=== PATIENT | female | born 1960 | race Caucasian/White ===

== ENCOUNTER → 2017-05-06 | Outpatient (CLI) | payer OTHER | LOC: CIMAGING 07:59 | PROVIDERS: ATTEND Family Medicine | DX: I10 Essential (primary) hypertension (principal); R09.89 Other specified symptoms and signs involving the circulatory and respiratory systems; R29.90 Unspecified symptoms and signs involving the nervous system | CPT/HCPCS: 76770-PO ==

== ENCOUNTER 2017-06-21 09:49 | Observation (INO) | payer OTHER ==
--- NOTE | 2017-06-21 09:53 | EDPHY ---
H & P Time Seen by Provider: 06/21/17 09:52 HPI/ROS: CHIEF COMPLAINT: Pins and needles on the left side HISTORY OF PRESENT ILLNESS: Patient had her 1st episode on April 20 and was seen at [facility]. She apparently had CT and MRI imaging was discharged in the emergency department. She was seen later that week at [facility] and it CTA as well as repeat head imaging. Her 3rd episode she says was a April 25 but she did not seek medical care at that time. Today she was at work at around 650 a.m. When she had sudden onset of feeling lightheaded followed by pins and needles on her left side which persists to her presentation here. Symptoms are moderate. Her 1st episode was associated with left leg weakness and difficulty speaking but not today. She did see Neurology Dr. Franco in the office after the 1st episode and he told her he thought it might have been hypertensive emergency. Today she did not have weakness or difficulty speaking associated with her symptoms. REVIEW OF SYSTEMS: Eye: no change in vision ENT: no sore throat Cardiac: no chest pain or syncope Pulmonary: no cough or SOB Abdomen: no vomiting, diarrhea, abdominal pain Musculoskeletal: no back pain Skin: no rash Neuro: no headache Constitutional: no fever : no urinary symptoms A comprehensive 10 point review of systems is otherwise negative aside from elements mentioned in the history of present illness. PAST MEDICAL HISTORY: Includes asthma Social history: Works as a respiratory therapist General Appearance: Alert and conversant, cooperative. Eyes: No scleral icterus. Pupils equal and reactive extraocular motion intact. ENT, Mouth: Normal mucous membranes. Respiratory: Normal respiratory effort, breath sounds equal, lungs are clear to auscultation. Cardiovascular: Regular rate and rhythm. Gastrointestinal: Abdomen is soft and non tender. Neurological: Alert, face symmetric, normal motor and sensory in extremities. Bilateral good wireless sales manager strength and normal [id number], no pronator drift. Speech is fluent. Can lift each limb up independently off the bed. Skin: Warm and dry, no rashes. Musculoskeletal: No peripheral edema. Psychiatric: Mildly anxious. Emergency Department course/MDM: Discussed with Joan 1009am. Repeat MRI. He will consult if requested by hospitalist. MRI reviewed at 2:10 p.m., white matter plaques possibly microvascular or could also be demyelinating. Admission for further evaluation of recurrent neurologic symptoms which still do not have a definitive diagnosis. Smoking Status: Never smoked Constitutional: Initial Vital Signs Temperature (C) 36.6 C 06/21/17 09:56 Heart Rate 70 06/21/17 09:56 Respiratory Rate 18 06/21/17 09:56 Blood Pressure 159/94 H 06/21/17 09:56 O2 Sat (%) 97 06/21/17 09:56 O2 Delivery Mode Room Air Allergies/Adverse Reactions: aspirin [Aspirin] Allergy (Severe, Verified 03/24/16 11:16) asthma attack NSAIDS (Non-Steroidal Anti-Inflamma [Nsaids] Allergy (Severe, Verified 03/24/16 11:16) asthma attack prochlorperazine edisylate [From Compazine] Allergy (Intermediate, Verified 08/04 11:16) muscle spasm prochlorperazine maleate [From Compazine] Allergy (Intermediate, Verified 11:16) muscle spasm prednisone [Prednisone] Allergy (Mild, Verified 03/24/16 11:16) rash on hands and feet Home Medications: Medication Instructions Recorded Albuterol [Proventil Inhaler HFA 2 puffs IH Q4H PRN 06/21/17 (*)] Loratadine [Claritin 10 mg] 10 mg PO DAILY 06/21/17 Mometasone Furoate [Asmanex] 1 puffs IH DAILY 06/21/17 Montelukast Sodium [Singulair 10 10 mg PO DAILY 06/21/17 mg (*)] Salmeterol Diskus [Serevent Diskus 1 puffs IH DAILY 06/21/17 (*)] Sertraline HCl [Zoloft 100mg (*)] 100 mg PO DAILY 06/21/17 amLODIPine BESYLATE [Norvasc 2.5 2.5 mg PO DAILY 06/21/17 mg (*)] Medical Decision Making - Diagnostics EKG Interpretation: 12-lead EKG interpreted by me; official reading is in trace master. My interpretation is sinus rhythm rate 62 with borderline left axis. Imaging Results: Imaging Impressions Brain MRI 06/21/17 10:12 Impression: 1. Several nonspecific hyperintense T2/FLAIR signal abnormalities in the white matter of bilateral cerebral hemispheres. Differential diagnosis includes multiple sclerosis demyelinating plaques versus microvascular ischemic gliosis. 2. No acute infarct, acute hemorrhage, hydrocephalus, or mass effect. 3. Mild chronic sinus disease. Findings and recommendations discussed with emergency department physician, Chapo Foster MD at 1230 hours on June 21, 2017. Final report concurs with initial preliminary interpretation. Imaging: Discussed imaging studies w/ orthopedically impaired teacher Radiologist Differential Diagnosis: Differential considered including but not limited to demyelinating disease, ischemic stroke, intracranial bleed or mass, metabolic, anxiety, peripheral neuropathy. Consult/Admit Bed Type: [facility] - Data Points Laboratory Results: Laboratory Results 06/21/17 10:15 06/21/17 10:15 06/21/17 06/21/17 10:15 10:15 WBC 6.64 10^3/uL 10^3/uL (3.80-9.50) RBC 4.83 10^6/uL 10^6/uL (4.18-5.33) Hgb 14.4 g/dL g/dL (12.6-16.3) Hct 42.1 % % (38.0-47.0) MCV 87.2 fL fL (81.5-99.8) MCH 29.8 pg pg (27.9-34.1) MCHC 34.2 g/dL g/dL (32.4-36.7) RDW 12.9 % % (11.5-15.2) Plt Count 189 10^3/uL 10^3/uL (150-400) MPV 9.4 fL fL (8.7-11.7) Neut % (Auto) 78.9 % H % (39.3-74.2) Lymph % (Auto) 14.5 % L % (15.0-45.0) [place] % (Auto) 4.7 % % (4.5-13.0) Eos % (Auto) 1.1 % % (0.6-7.6) Baso % (Auto) 0.3 % % (0.3-1.7) Nucleat RBC Rel Count 0.0 % % (0.0-0.2) Absolute Neuts (auto) 5.25 10^3/uL 10^3/uL (1.70-6.50) Absolute Lymphs (auto) 0.96 10^3/uL L 10^3/uL (1.00-3.00) Absolute Monos (auto) 0.31 10^3/uL 10^3/uL (0.30-0.80) Absolute Eos (auto) 0.07 10^3/uL 10^3/uL (0.03-0.40) Absolute Basos (auto) 0.02 10^3/uL 10^3/uL (0.02-0.10) Absolute Nucleated RBC 0.00 10^3/uL 10^3/uL (0-0.01) Immature Gran % 0.5 % % (0.0-1.1) Immature Gran # 0.03 10^3/uL 10^3/uL (0.00-0.10) Sodium 142 mEq/L mEq/L (135-145) Potassium 3.7 mEq/L mEq/L (3.5-5.2) Chloride 106 mEq/L mEq/L (97-110) Carbon Dioxide 24 mEq/l mEq/l (22-31) Anion Gap 12 mEq/L mEq/L (8-16) BUN 20 mg/dL mg/dL (7-23) Creatinine 0.7 mg/dL mg/dL (0.6-1.0) Estimated GFR > 60 Glucose 133 mg/dL H mg/dL (70-100) Calcium 9.7 mg/dL mg/dL (8.5-10.4) Departure - Departure Disposition: [facility] Acute Clinical Impression: Paresthesia Condition: Good
--- NOTE | 2017-06-21 10:24 | CPEKG ---
Heart Rate: 62 RR Interval: 968 P-R Interval: 156 QRSD Interval: 92 QT Interval: 448 QTC Interval: 455 P [place]: -14 QRS [place]: -23 T Wave [place]: 27 EKG Severity - BORDERLINE ECG - EKG Impression: SINUS RHYTHM EKG Impression: BORDERLINE LEFT AXIS DEVIATION EKG Impression: BORDERLINE T ABNORMALITIES, ANTERIOR LEADS Electronically Signed By: Chapo Foster 21-Jun-2017 10:39:45
[2017-06-21 10:30] LABS: PLATELET COUNT 189 10^3/uL (150-400)
--- NOTE | 2017-06-21 11:34 | ASMTLACE ---
NICOLAS Acuity / Level of Answers: Yes Care: Did the patient have an inpatient admission? Comorbidities - select Answers: Chronic pulmonary disease all that apply # of Emergency department Answers: 1-2 visits in the last 6 months Score: 6 Date Signed: 06/21/2017 11:33 AM Electronically Signed By:Sanna Wu RN
[2017-06-21 12:31] VITALS: BP 110/94; PULSE 68; RESP 15; TEMP 97.6; O2SAT 95
[2017-06-21] MEDS ORDERED: ONDANSETRON DISINTEGRATING 4 MG TAB PO PRN (13:05)
[2017-06-21] MEDS ORDERED: LORazepam 0.5 MG TAB PO PRN (13:05)
[2017-06-21] MEDS ORDERED: ACETAMINOPHEN 325 MG TAB PO PRN (13:05)
[2017-06-21] MEDS ORDERED: ONDANSETRON 4 MG/2 ML VIAL IVP PRN (13:05)
[2017-06-21] MEDS ORDERED: ALBUTEROL 60 PUFFS/8 GM MDI IH PRN (13:07)
--- NOTE | 2017-06-21 15:43 | GHP ---
[f rep st] HISTORY AND PHYSICAL DATE OF ADMISSION: 06/21/2017 CHIEF COMPLAINT: Left-sided facial and body numbness and tingling with lightheadedness. HISTORY OF PRESENT ILLNESS: The patient is a 56-year-old female with history of hypertension, anxiet y, depression, and migraine headaches, who presented to the emergency department with recurrent sympt oms, including sudden onset lightheadedness with left-sided facial numbness and left-sided weakness. She also endorses mild tingling in her left upper and lower extremities as well as the left side of her face. Her symptoms have mostly resolved, though she still has some vague weakness. This is actu ally her 4th episode over the past several months. She has had 2 episodes while at work; 1 that occu rred April 20 after arriving to work [place] [address] She then had a rapi d response which provoked some stress. She then immediately felt lightheaded as if she might pass ou t, and she lowered herself to the ground without loss of consciousness. At that time, her blood pres sure was found to be 190/101. She ultimately went to the emergency department at [facility], and a CT brain was unremarkable. An MRI brain at that time was negative for stroke, and show ed just [id number] chronic microvascular ischemic changes. She was normotensive by the time of discharge, though states it took about 24 hours for her symptoms to completely resolve. She also no sunny that she spent a month suffering from left-sided weakness and fatigue. She had another episode April 26, 2017, and presented to a different hospital, [facility]. Again, a s troke workup, including CTA head and neck were unremarkable without any hemodynamically significant l esions. An MRI again showed nothing acute. There was some consideration given to hypertensive emerg ency as there had been prior documented high blood pressures during the onset of symptoms. However, today her episode occurred while at work. She developed sudden lightheadedness followed by left faci al numbness and left upper and lower extremity weakness and tingling. During the event today she was normotensive with a blood pressure of 130s over 80s. She had no chest pain, shortness of breath, vi ajx changes, or difficulty with speech. She is admitted to the hospital for further management. PAST MEDICAL/SURGICAL HISTORY: 1. Depression, anxiety. 2. Hypertension. 3. History of migraine headaches. 4. Asthma. 5. Irritable bowel syndrome. 6. Restless legs. 7. Sleep apnea. FAMILY HISTORY: She notes her daughter suffers from anxiety and panic attacks. SOCIAL HISTORY: The patient lives independently. 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 She reports 1 glass of wine 3-4 times a week, and quit smoking in April 2017. She has a history of high caffeine intake, though recently quit this as well in April 2017. REVIEW OF SYSTEMS: A 10-point review of systems was performed, is negative except as per HPI. OBJECTIVE: VITAL SIGNS: Temperature is 36.4, blood pressure 110/94, heart rate 68, respiratory rate 15. She is 95% on room air. GENERAL: The patient is awake, alert and oriented, in no acute distre ss. HEENT: Head is atraumatic, normocephalic. Pupils equal, round, react to light. Extraocular mus cles are intact. Oropharynx clear. Mucous membranes are moist. NECK: Supple. There is no JVD. H EART: Regular rate and rhythm without murmur. LUNGS: Clear to auscultation bilaterally. ABDOMEN: Soft, nondistended, nontender with normoactive bowel sounds. EXTREMITIES: Without cyanosis, clubbi ng, or edema. NEUROLOGIC: Cranial nerves 2-12 are intact. She reports slight decrease in sensation of her left face and distal left upper extremity. Pronator drift is negative. There is no facial a symmetry. She has 5/5 muscle strength in bilateral upper extremities with no extensor weakness. She does have slightly decreased strength in her left lower extremity, 4/5, compared to 5/5 on the right , though I note her effort is intermittent during this exam. LABORATORY DATA: CBC was completely normal. Basic metabolic panel shows normal electrolytes, normal creatinine of 0.7, glucose 133. I also reviewed some outpatient laboratory data. She had 24-hour u rine with normal levels of metanephrine. A morning cortisol was normal. Brain MRI without contrast shows several nonspecific hyperintense T2 flare signal abnormalities in th e white matter of bilateral cerebral hemispheres. No acute infarct, hemorrhage, hydrocephalus, or ma ss effect is noted. I reviewed this with our neurologist who notes this is unchanged from her 2 prio r MRIs at outside hospitals. ASSESSMENT AND PLAN: The patient is a 56-year-old female with recurrent symptoms of lightheadedness, facial, and left body numbness, who is admitted to the hospital with recurrent symptoms. 1. Facial and left body numbness and lightheadedness. Differential diagnosis of this symptom patter n includes transient ischemic attack or stroke, which seem unlikely based on prior neurologic consult ation and imaging. Also, consider migraine variant, though this also seems unlikely with no signific ant headache reported, and this being inconsistent with her previous migraine headaches. Hypertensiv e emergency was also considered, though this event occurred while she was normotensive. In addition, is considered an anxiety or panic attack, though the patient is very reluctant to acknowledge this p ossibility. She still has some very vague residual symptoms. I will give her a dose of Ativan now t o see how she responds. I discussed the case with Neurology, and there is no further workup indicate d. Of note, she did have a cervical spine imaging done at [facility], which did not reveal any abnorma lities. There is no evidence to suggest stroke. She will be continued on her Zoloft with as needed Ativan and close outpatient followup. She does plan to obtain a 2nd opinion [facility] Dr[facility]. 2. Hypertension. She is relatively normotensive at this time. We will continue her outpatient amlo dipine. 3. Asthma. There is no evidence of exacerbation. We will continue her outpatient medications, incl uding Asmanex, Serevent, albuterol, and Singulair. 4. Deep vein thrombosis prophylaxis. Patient is low risk, and do not anticipate a prolonged hospita lization. 5. Code status: Patient is full code. 6. Disposition: Patient admitted to observation status. Anticipate discharge in the morning should her condition remain stable. /[id number]/MODL
--- NOTE | 2017-06-21 20:34 | GDS ---
[f rep st] DISCHARGE SUMMARY DISCHARGE DIAGNOSIS: Recurring episodes of left-sided facial and body numbness and tingling with lig htheadedness. CONSULTANTS: Neurology consultation was obtained via telephone. The patient wished to discharge ken or to formal neurology consultation. IMAGING STUDIES: Brain MRI, June 21, 2017, showed several, nonspecific, hyperintense, T2 FLAIR signa l abnormalities in the white matter of bilateral cerebral hemispheres; no acute infarct, acute hemorr chyna, hydrocephalus, or mass effect. Mild chronic sinus disease was noted. Also of note, I reviewed this MRI with our neurologist who had also seen her 2 previous MRIs at outside hospital and notes th subhash bilateral cerebral hemisphere signal abnormalities are unchanged from prior. HISTORY: For details, please see the history and physical dated June 21, 2017. In brief, the patien rafiq is a 56-year-old female with a history of depression, anxiety, hypertension, and migraine headaches who presented to the emergency department with a 4th episode of left-sided facial numbness as well a s left-sided body numbness and tingling with lightheadedness. She has been evaluated in 2 other hosp itals with similar symptoms. Previous brain MRIs have shown changes consistent with microvascular di sease likely related to her hypertension. She has also had a stroke workups at outside hospitals inc luding CTAs which were unremarkable. In addition, she had a CT of her cervical spine which did not r eveal an etiology of her symptoms. Given the recurring nature of her symptoms, she was admitted to [facility] for further management. HOSPITAL COURSE: The patient was admitted to the med-surg unit. As above, MRI was obtained. This w as unchanged from her 2 previous MRIs over the past 2 months. Consideration was given to TIA or stro ke. I discussed the case with Neurology, and Dr. Franco doubts these episodes represent TIAs, and [facility] MRI shows no evidence of stroke. Consideration was also given to a migraine variant, although jovi t seems less likely as she has had no headaches with these episodes. Initially, her episodes were th ought to be hypertensive emergencies, although this episode it was noted that she was normotensive ma isai hypertensive emergency an unlikely cause. After lengthy discussion with Neurology, Dr. Franco feels this does not represent multiple sclerosis or any demyelinating neurologic syndrome. Some form of anxiety or panic attack is considered a possible explanation for her symptoms. She is actually q uite discouraged and does not believe it is possible these episodes could represent anxiety or panic attacks. I did offer to try a dose of Ativan while she was here since she is still having some resid ual symptoms, though she declined this. After lengthy review with Neurology, no further neurologic w orkup was recommended. The patient does plan to have a 2nd opinion from Dr. Lee in the outpati ent setting. Of note, she was relatively normotensive during this admission, and I recommend she con tinue her outpatient amlodipine. I also reviewed recent outpatient workup for labile hypertension, a nd she has had normal 24-hour urine metanephrine and normetanephrine as well as normal morning cortis ol. We discussed the possibility of trying a medication such as nortriptyline or amitriptyline for t he possibility that this could improve a recurring atypical migraine syndrome. I will defer this to her primary care physician to determine if they would like to increase her Zoloft versus a trial of A tivan or possibly a trial on nortriptyline. I offered the patient overnight hospitalization for obse rvation to ensure her symptoms resolve and there are no new neurologic abnormalities. However, she d eclines to remain hospitalized and wishes to discharge home. She is currently stable, and I think th at is reasonable. We discussed close outpatient followup with both her primary care and Neurology. DISPOSITION: Patient is discharged home in stable condition. FOLLOWUP: 1. Dr. Jordan Lee, Neurology, for 2nd opinion at the patient's request. 2. Dr. Jillian Lewis, primary care. DISCHARGE MEDICATIONS: Please see Endra for completed outpatient medication list. She will jay nue all outpatient medications as previously prescribed. There are no new medications on discharge. /[id number]/MODL
[2017-06-22] MEDS ORDERED: MOMETASONE FUROATE IH SCH (09:00)
[2017-06-22] MEDS ORDERED: CETIRIZINE 10 MG TAB PO SCH (09:00)
[2017-06-22] MEDS ORDERED: SERTRALINE HCL 100 MG TAB PO SCH (09:00)
[2017-06-22] MEDS ORDERED: SALMETEROL DISKUS MDI IH SCH (09:00)
[2017-06-22] MEDS ORDERED: MONTELUKAST SODIUM 10 MG TAB PO SCH (09:00)
== END 2017-06-21 15:40 | disposition home or self-care (01) ==
LOC: F3N 12:19
PROVIDERS: ADMIT Internal Medicine; ATTEND Hospitalist
DX: R20.2 Paresthesia of skin (principal); R42 Dizziness and giddiness; R29.898 Other symptoms and signs involving the musculoskeletal system; R29.700 NIHSS score 0; F41.9 Anxiety disorder, unspecified; G43.909 Migraine, unspecified, not intractable, without status migrainosus; F32.9 Major depressive disorder, single episode, unspecified; I10 Essential (primary) hypertension; J45.909 Unspecified asthma, uncomplicated; K58.9 Irritable bowel syndrome, unspecified; G25.81 Restless legs syndrome; G47.33 Obstructive sleep apnea (adult) (pediatric); Z87.891 Personal history of nicotine dependence
CPT/HCPCS: 70551; 93005; 99285; G0378

== ENCOUNTER 2017-11-12 09:25 | Emergency (ER) | payer OTHER ==
--- NOTE | 2017-11-12 09:57 | CPEKG ---
Heart Rate: 67 RR Interval: 896 P-R Interval: 148 QRSD Interval: 98 QT Interval: 428 QTC Interval: 452 P [place]: 49 QRS [place]: -18 T Wave [place]: 38 EKG Severity - BORDERLINE ECG - EKG Impression: SINUS RHYTHM Electronically Signed By: Edgardo Dukes 12-Nov-2017 10:05:18
[2017-11-12] MEDS ORDERED: MECLIZINE HCL 25 MG TAB PO ONE (10:00)
--- NOTE | 2017-11-12 10:01 | EDPHY ---
H & P Stated Complaint: extremity tingling, dizzy Time Seen by Provider: 11/12/17 09:42 HPI/ROS: CHIEF COMPLAINT: Vertigo, chronic paresthesias HISTORY OF PRESENT ILLNESS: The patient presents to the ED with a several day history of positional vertigo. She has a history of chronic intermittent paresthesias. She has had an MRI for this condition and seen Neurology. 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 The patient has been frustrated with this diagnosis. She reports she has had symptoms of vertigo with her paresthesias in the past. She denies any history of fall or trauma. She denies neck pain or chiropractic manipulation. She is under the care of Dr. Jordan Lee from Neurology as an outpatient. The patient denies any fever. She denies any recent medication changes. She denies any history of fall or trauma. She has no complaints of an acute headache. REVIEW OF SYSTEMS: A comprehensive 10 point review of systems is otherwise negative aside from elements mentioned in the history of present illness. Source: Patient - Personal History Current Tetanus/Diphtheria Vaccine: Unsure Current Tetanus Diphtheria and Acellular Pertussis (TDAP): Unsure Tetanus Vaccine Date: within 10 years - Medical/Surgical History Hx Asthma: Yes Hx Chronic Respiratory Disease: No Hx Diabetes: No Hx Cardiac Disease: No Hx Renal Disease: No Hx Cirrhosis: No Hx Alcoholism: No Hx HIV/AIDS: No Hx Splenectomy or Spleen Trauma: No Other PMH: 2 sinus surgeries , depression, asthma, hand tremors, HTN - Social History Smoking Status: Never smoked - Physical Exam Exam: General Appearance: Alert, no distress Eyes: Pupils equal and round no pallor or injection ENT, Mouth: Mucous membranes moist Respiratory: There are no retractions, lungs are clear to auscultation Cardiovascular: Regular rate and rhythm Gastrointestinal: Abdomen is soft and nontender, no masses, bowel sounds normal Neurological: A&O, normal motor function, normal sensory exam, normal cranial nerves Skin: Warm and dry, no rashes Musculoskeletal: Neck is supple nontender Extremities: symmetrical, full range of motion Psychiatric: Patient is oriented X 3, there is no agitation Constitutional: Initial Vital Signs Temperature (C) 36.6 C 11/12/17 09:33 Heart Rate 69 07/25/18 09:33 Respiratory Rate 16 11/12/17 09:33 Blood Pressure 130/80 H 11/12/17 09:33 O2 Sat (%) 96 11/12/17 09:33 O2 Delivery Mode Room Air Allergies/Adverse Reactions: aspirin [Aspirin] Allergy (Severe, Verified 11/12/17 09:31) asthma attack NSAIDS (Non-Steroidal Anti-Inflamma [Nsaids] Allergy (Severe, Verified 11/12/17 09:31) asthma attack prochlorperazine edisylate [From Compazine] Allergy (Intermediate, Verified 09:31) muscle spasm prochlorperazine maleate [From Compazine] Allergy (Intermediate, Verified 09:31) muscle spasm prednisone [Prednisone] Allergy (Mild, Verified 11/12/17 09:31) rash on hands and feet Home Medications: Medication Instructions Recorded Albuterol [Proventil Inhaler HFA 2 puffs IH Q4H PRN 06/21/17 (*)] Loratadine [Claritin 10 mg] 10 mg PO DAILY 06/21/17 Mometasone Furoate [Asmanex] 1 puffs IH DAILY 06/21/17 Montelukast Sodium [Singulair 10 10 mg PO DAILY 06/21/17 mg (*)] Salmeterol Diskus [Serevent Diskus 1 puffs IH DAILY 06/21/17 (*)] Sertraline HCl [Zoloft 100mg (*)] 100 mg PO DAILY 06/21/17 amLODIPine BESYLATE [Norvasc 2.5 2.5 mg PO DAILY 06/21/17 mg (*)] Folic Acid 11/12/17 Lyrica 11/12/17 Meclizine HCl [Meclizine HCl 25 mg 25 mg PO BID PRN #20 tab 11/12/17 (RX,OTC)] Vitamin B12 11/12/17 Vitamin D2 11/12/17 Medical Decision Making - Diagnostics EKG Interpretation: EKG: Complete interpretation has been separately recorded in the [facility] archive. Summary impression: Sinus rhythm, rate 67, no ischemic changes noted ED Course/Re-evaluation: I reviewed the patient's past medical records including her prior workup. Her neurologic examination is within normal limits. She has no obvious nystagmus noted on exam. Screening electrolyte studies have been ordered and the patient was treated with 25 mg of meclizine. The patient's laboratory studies are unremarkable. I do feel it is reasonable to have the patient begin meclizine and follow up with her neurologist as scheduled. I see no indication for emergent neuro imaging at this point time. Differential Diagnosis: Differential diagnosis considered includes peripheral vertigo, chronic paresthesias, anxiety, central vertigo, metabolic abnormality - Data Points Laboratory Results: Laboratory Results 11/12/17 10:26 11/12/17 10:26 11/12/17 11/12/17 10: 10:26 WBC 5.25 10^3/uL 10^3/uL (3.80-9.50) RBC 4.93 10^6/uL 10^6/uL (4.18-5.33) Hgb 14.8 g/dL g/dL (12.6-16.3) Hct 43.2 % % (38.0-47.0) MCV 87.6 fL fL (81.5-99.8) MCH 30.0 pg pg (27.9-34.1) MCHC 34.3 g/dL g/dL (32.4-36.7) RDW 13.1 % % (11.5-15.2) Plt Count 164 10^3/uL 10^3/uL (150-400) MPV 9.5 fL fL (8.7-11.7) Neut % (Auto) 68.2 % % (39.3-74.2) Lymph % (Auto) 23.4 % % (15.0-45.0) [place] % (Auto) 5.5 % % (4.5-13.0) Eos % (Auto) 1.9 % % (0.6-7.6) Baso % (Auto) 0.4 % % (0.3-1.7) Nucleat RBC Rel Count 0.0 % % (0.0-0.2) Absolute Neuts (auto) 3.58 10^3/uL 10^3/uL (1.70-6.50) Absolute Lymphs (auto) 1.23 10^3/uL 10^3/uL (1.00-3.00) Absolute Monos (auto) 0.29 10^3/uL L 10^3/uL (0.30-0.80) Absolute Eos (auto) 0.10 10^3/uL 10^3/uL (0.03-0.40) Absolute Basos (auto) 0.02 10^3/uL 10^3/uL (0.02-0.10) Absolute Nucleated RBC 0.00 10^3/uL 10^3/uL (0-0.01) Immature Gran % 0.6 % % (0.0-1.1) Immature Gran # 0.03 10^3/uL 10^3/uL (0.00-0.10) Sodium 141 mEq/L mEq/L (135-145) Potassium 3.7 mEq/L mEq/L (3.3-5.0) Chloride 107 mEq/L mEq/L (97-110) Carbon Dioxide 24 mEq/l mEq/l (22-31) Anion Gap 10 mEq/L mEq/L (8-16) BUN 19 mg/dL mg/dL (7-23) Creatinine 0.6 mg/dL mg/dL (0.6-1.0) Estimated GFR > 60 Glucose 115 mg/dL H mg/dL (70-100) Calcium 9.2 mg/dL mg/dL (8.5-10.4) Medications Given: Discontinued Medications Meclizine HCl (Meclizine Hcl) 12.5 mg PO EDNOW ONE Stop: 11/12/17 10:01 Last Admin: 11/12/17 10:21 Dose: 12.5 mg Departure - Departure Disposition: Home, Routine, Self-Care Clinical Impression: Paresthesia, Vertigo Condition: Good Instructions: Vertigo (ED) Additional Instructions: 1. Meclizine as directed for vertigo. 2. Follow up with Dr. Lee for any unimproved symptoms. Referrals: Jillian Lewis MD [Primary Care Provider] - As per Instructions Jordan Lee MD [Medical Doctor] - As per Instructions
[2017-11-12 10:34] LABS: PLATELET COUNT 164 10^3/uL (150-400)
[2017-11-12 11:43] VITALS: BP 142/78
== END 2017-11-12 11:50 | disposition home or self-care (01) ==
DX: R42 Dizziness and giddiness (principal); R20.2 Paresthesia of skin; J45.909 Unspecified asthma, uncomplicated; I10 Essential (primary) hypertension